=== PATIENT | male | born 1950 | race Caucasian/White ===

== ENCOUNTER 2019-08-06 22:22 | Observation (INO) ==
[2019-08-06 23:15] LABS: BASO# 0.03 X1000 (0.0-0.2); BASO% 0.3 % (0.0-0.8); EOS# 0.32 X1000 (0.0-0.7); EOS% 3.4 % (0.0-10.0); HEMATOCRIT 48.7 % (42.0-52.0); HEMOGLOBIN 16.4 g/dL (14.0-18.0); IMM GRAN# 0.02 X1000 (0.0-0.04); IMM GRAN% 0.2 % (0.0-0.5); LYMPH% 23.4 % (20.5-51.1); MCH 29.9 PG (27-31); MCHC 33.7 g/dL (33-37); MCV 88.7 FL (81-99); MONO# 0.79 X1000 (0.11-0.59); MONO% 8.4 % (1.7-9.3); MPV 10.7 FL (7.4-10.4); NEUT# 6.04 X1000 (1.4-6.5); NEUT% 64.3 % (42.2-75.2); PLT 224 X1000 (130-400); RBC 5.49 XMIL (4.7-6.1); RDW 13.8 % (11.5-14.5)
--- NOTE | 2019-08-06 23:43 | PROVIDER DOCUMENTATION ---
HPI-Syncope/Dizziness - General Chief Complaint: Syncope Stated Complaint: PASSED OUT AT HOME Time Seen by Provider: 08/06/19 22:46 Source: patient, family - History of Present Illness-Syncope/Dizzy Nature of Presenting Problem: This is a 68yo male who presents with CC of syncopal episode. The patient rep orts that he was heading to the rest room and noted some nausea and then had a syncopal episode while sitting next to the toilet. The episode lasted about 10 seconds and the patients saw him and began some chest compressions, and he quickly woke up and was talking to her. The patient was only out for 10-20 seconds. Onset/Duration: reports: other (10pm) Timing: reports: improving Symptoms prior to episode: reports: other (nausea) Context: reports: lost consciousness Loss of Consciousness: brief (seconds) Location of injury. (If syncope resulted in an injury.): reports: none Current Symptoms: reports: none/feels normal Similar symptoms previously: reports: previous diagnosis (patient had the flu) Recently Seen Here or By Another Healthcare Provider: No - Dizziness Dizziness Related Current/Associated Symptoms: reports: none/feels normal Review of Systems - Adult - REVIEW OF SYSTEMS - ADULT Constitutional: denies: fever Eyes: reports: no symptoms reported Ears, Nose, Mouth & Throat: reports: no symptoms reported Cardiovascular: denies: chest pain Respiratory: denies: cough, shortness of breath Gastrointestinal: denies: abdominal pain Genitourinary: reports: no symptoms reported Musculoskeletal: reports: no symptoms reported. denies: muscle weakness Integumentary: reports: no symptoms reported Neurological: reports: syncope (now resolved) Psychiatric: reports: no symptoms reported Endocrine: reports: no symptoms reported Hematologic/Lymphatic: reports: no symptoms reported Allergic/Immunologic: reports: no symptoms reported Past History - Adult - PAST MEDICAL HISTORY-ADULT Review of Records: reports: Old Records Reviewed Cardiovascular: reports: CAD, HTN, other (HLD) - SOCIAL HISTORY Substance Use: alcohol, marijuana Alcohol Use Frequency: occasionally Physical Exam-General - CONSTITUTIONAL General Appearance: appears well, alert, no apparent distress - EYES Eyes: PERRL/EOMI, other. negative: scleral icterus - HEAD, EARS, NOSE, MOUTH & THROAT HENMT: moist mucous membranes - RESPIRATORY Respiratory: rales (Left-side) - CARDIOVASCULAR Cardiovascular: regular rate, rhythm, no edema - GASTROINTESTINAL (ABDOMEN) Abdominal Exam: non tender, soft - MUSCULOSKELETAL Extremity: normal range of motion, other (strength 5/5 in upper and lower extremities) - SKIN Integumentary: normal color - NEUROLOGIC Neurologic: air pumper II-XII nml as tested. negative: facial droop, focal weakness, motor weakness, sensory deficit - PSYCHIATRIC Psych/Mental Status: normal mood/affect Progress - PLAN OF CARE/RESULTS Progress/Plan/Lab Results: Vital Signs - 8 hr 08/06/19 22:27 08/06/19 22:49 08/06/19 23:01 Temperature 97.4 F L Pulse Rate 61 62 61 Pulse Rate [Sitting] Pulse Rate [Standing] Pulse Rate [Supine] Respiratory Rate 16 14 13 Blood Pressure 120/67 142/73 115/68 Blood Pressure [Sitting] Blood Pressure [Standing] Blood Pressure [Supine] O2 Sat by Pulse Oximetry 95 96 98 08/06/19 23:42 08/06/19 23:44 08/06/19 23:45 Temperature Pulse Rate 62 68 75 Pulse Rate [Sitting] Pulse Rate [Standing] Pulse Rate [Supine] Respiratory Rate 13 15 18 Blood Pressure 121/70 124/69 123/89 Blood Pressure [Sitting] Blood Pressure [Standing] Blood Pressure [Supine] O2 Sat by Pulse Oximetry 94 L 92 L 92 L 08/07/19 00:01 08/07/19 00:05 08/07/19 00:31 Temperature Pulse Rate 62 71 Pulse Rate [Sitting] 65 Pulse Rate [Standing] 75 Pulse Rate [Supine] 62 Respiratory Rate 16 12 Blood Pressure 121/70 110/68 Blood Pressure [Sitting] 124/69 Blood Pressure [Standing] 123/89 Blood Pressure [Supine] 121/70 O2 Sat by Pulse Oximetry 94 L 93 L Laboratory Results - last 24 hr 08/06/19 08/06/19 08/06/19 22:39 22:53 22:53 WBC 9.40 RBC 5.49 Hgb 16.4 Hct 48.7 MCV 88.7 MCH 29.9 MCHC 33.7 RDW Std Deviation 13.8 Plt Count 224 MPV 10.7 H Immature Gran % (Auto) 0.2 Neut % (Auto) 64.3 Lymph % (Auto) 23.4 Gregg % (Auto) 8.4 Eos % (Auto) 3.4 Baso % (Auto) 0.3 Immature Gran # (Auto) 0.02 Neut # (Auto) 6.04 Lymph # (Auto) 2.20 Gregg # (Auto) 0.79 H Eos # (Auto) 0.32 Baso # (Auto) 0.03 Sodium 140 Potassium 3.6 Chloride 102 Carbon Dioxide 29 Anion Gap 9 BUN 15 Creatinine 1.0 Estimated GFR/1.73 m2 > 60 BUN/Creatinine Ratio 15 Glucose 117 H POC Glucose 139 H Calculated Osmolality 281 Calcium 8.8 Total Bilirubin 0.62 AST 17 ALT 16 Alkaline Phosphatase 84 Troponin T Total Protein 6.5 Albumin 4.4 Globulin 2.1 Albumin/Globulin Ratio 2.1 Urine Source 08/06/19 08/07/19 22:53 01:26 WBC RBC Hgb Hct MCV MCH MCHC RDW Std Deviation Plt Count MPV Immature Gran % (Auto) Neut % (Auto) Lymph % (Auto) Gregg % (Auto) Eos % (Auto) Baso % (Auto) Immature Gran # (Auto) Neut # (Auto) Lymph # (Auto) Gregg # (Auto) Eos # (Auto) Baso # (Auto) Sodium Potassium Chloride Carbon Dioxide Anion Gap BUN Creatinine Estimated GFR/1.73 m2 BUN/Creatinine Ratio Glucose POC Glucose Calculated Osmolality Calcium Total Bilirubin AST ALT Alkaline Phosphatase Troponin T < 0.010 Total Protein Albumin Globulin Albumin/Globulin Ratio Urine Source CLEAN CATCH Orders Category Date Time Status Update & Confirm Home Medicati ROUTINE Care 08/07/19 01:36 Active CHEST-1 VIEW [RAD] Stat Exams 08/06/19 23:[address] HEAD W/O CONTRAST [CT] Stat Exams 08/06/19 23:20 Taken BNP [PRO B-NATRIURETIC PEPTIDE] Stat Lab 08/07/19 01:15 Received CBC WITH ELECTRONIC DIFF [HEME] Stat Lab 08/06/19 22:53 Completed COMPREHENSIVE METABOLIC PANEL [CHEM] Stat Lab 08/06/19 22:53 Completed Flu Swab [INFLUENZA SCREEN A/B] Stat Lab 08/07/19 01:05 Received TROPONIN T Stat Lab 08/06/19 22:53 Completed UA NIMS W/REFLEX CULT [URINALYSIS] Stat Lab 08/07/19 01:26 Results URINE DRUG SCREEN Stat Lab 08/07/19 01:26 Received 0.9% Sodium Chloride Inj [Ns] 1,000 ml Med 08/06/19 23:50 Discontinued IV 999 mls/hr EKG [EKG] Stat Ther 08/06/19 22:37 Ordered Transfer/Admit Order [TRANSFER] Routine Transfer 08/07/19 01:27 Ordered Result Diagrams: 08/06/19 22:53 08/06/19 22:53 - REASSESSMENT Reassessment #1 Status: other (Patient currently asymptomatic. Ortostatics negative. Awaiting imaging and lab results.) Reassessment #2 Status: other (Given patient age and bradycardia, and heart history will admit to inpatient. Discussed with hospitalist and he has accepted the patient.) Departure - Departure Date of Disposition Decision: 08/07/19 Time of Disposition Decision: 02:04 DIAGNOSIS: Bradycardia Syncope Qualifiers: Syncope type: unspecified Qualified Code(s): R55 - Syncope and collapse Disposition: ADMITTED INPATIENT 09 Certified Medical Emergency: Emergent Condition: Fair Referrals and Follow-Ups: Bonifacio Alvarez MD [Primary Care Provider] - - Critical Care Note This patient required my direct & personal management of CC.: No Attestation - Physician/ TIFFANIE Attestation Patient care was provided by Advanced Practice Provider:: No The physician spent face to face time with patient:: Yes Advanced Practice Provider documentation review:: Supervising physician onsite and consulted in the evaluation and care of this patient. The physician did have a face to face encounter with the patient.
[2019-08-06] MEDS ORDERED: NS 1,000 ML IV ONE (23:50)
[2019-08-07 00:50] LABS: AGAP 9; ALB/GLOB RATIO 2.1; ALBUMIN 4.4 g/dL (3.5-5.0); ALKALINE PHOSPHATASE 84 U/L (32-122); BUN 15 mg/dL (8-22); CALCIUM 8.8 mg/dL (8.8-10.2); CHLORIDE 102 mmol/L (98-107); COSMO 281; ESTIMATED GFR > 60; GLUCOSE 117 mg/dL (70-104); GOT 17 U/L (10-34); GPT 16 U/L (10-44); POTASSIUM 3.6 mmol/L (3.5-5.1); SODIUM 140 mmol/L (136-145); TCO2 29 mmol/L (25-35); TOTAL BILIRUBIN 0.62 mg/dL (0.20-1.00); TOTAL PROTEIN 6.5 g/dL (6.3-8.3)
[2019-08-07 01:29] LABS: URINE SOURCE CLEAN CATCH
[2019-08-07 02:11] LABS: UR AMPHETAMINES QUAL NONE DETECTED (NONE DETECT); UR BARBITUATES QUAL NONE DETECTED (NONE DETECT); UR BENZODIAZEPIN QUAL NONE DETECTED (NONE DETECT); UR CANNABINOIDS QUAL PRESUMPTIVE POSITIVE (NONE DETECT); UR COCAINE QUAL NONE DETECTED (NONE DETECT); UR METHADONE QUAL NONE DETECTED (NONE DETECT); UR OPIATES QUAL NONE DETECTED (NONE DETECT); UR OXYCODONE QUAL NONE DETECTED (NONE DETECT); UR PCP QUAL NONE DETECTED (NONE DETECT)
[2019-08-07 02:19] LABS: BILIRUBIN URINE NEGATIVE (NEGATIVE); BLOOD URINE NEGATIVE (NEGATIVE); COLOR YELLOW; GLUCOSE URINE NEGATIVE (NEGATIVE); KETONE URINE NEGATIVE (NEGATIVE); LEUKOCYTES URINE NEGATIVE (NEGATIVE); NITRITE URINE NEGATIVE (NEGATIVE); PH URINE 6.5; PROTEIN URINE 30 mg/dL (NEGATIVE); SP GRAVITY URINE 1.016; TURBIDITY URINE CLEAR (CLEAR); UR EPITHELIAL CELLS <10 /HPF (<10); URINE BACTERIA NEGATIVE /HPF; URINE RBC <10 /HPF (<10); URINE WBC <10 /HPF (<10); UROBILINOGEN URINE NORMAL (NORMAL)
--- NOTE | 2019-08-07 02:56 | HISTORY AND PHYSICAL ---
PRIMARY CARE PROVIDER: Yong Alvarez. CHIEF COMPLAINT: Syncope. HISTORY OF PRESENT ILLNESS: Mr. Hebert is a 68-year-old male who presents after having a syncopal episode. He stated that he was sitting in his living room watching football and this was after he had eaten dinner. He started feeling somewhat nauseous, went into the bathroom. Was sitting on the side of the toilet feeling as if he may vomit. At that point, he broke into a cold sweat and woke up in the bathtub with his over him. Apparently, he had loss of consciousness for around 10 seconds. After he got up, he had diarrhea and apparently after that he has felt fine. The stated that he looked pale. On coming in, his vital signs and laboratory data are normal. The patient is asymptomatic. Orthostatics were normal. On his EKG on arrival, he was bradycardic with a rate of 56. He is on Coreg. It is possible that he had a spell of symptomatic bradycardia or possibly vasovagal. At any rate, his CT of his head was normal as well. He will be placed on observation status for further evaluation and treatment. PAST MEDICAL HISTORY: Hypertension, hyperlipidemia, coronary artery disease with previous cardiac stenting, congestive heart failure with an ejection fraction around 40%. PREVIOUS SURGICAL HISTORY: Cardiac stenting. Denies other surgical history. 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 He works in an air conditioned environment. Has not worked since . He does not smoke. He quit around 2009. Does use marijuana a couple of times daily. He had used marijuana today prior to having the spell. Drinks 2 beers a week and does not use any other illicit drugs. FAMILY HISTORY: Positive for coronary artery disease in first-degree relatives. ALLERGIES: No known drug allergies. HOME MEDICATIONS: Coreg, dosage is unknown. Also takes he said a blood pressure pill which he is unsure of and a statin. Order was placed for Nursing to reconcile these home medications. They can be restarted tomorrow. REVIEW OF SYSTEMS: Fourteen-point review of systems conducted with the patient. Pertinent positives listed above in the HPI. He has no complaints at this time. All other systems are negative. PHYSICAL EXAMINATION: VITAL SIGNS: Temperature 97.4, pulse 61, respirations 13, blood pressure 115/68, oxygen saturation 98% on room air. GENERAL: Pleasant 68-year-old male lying in the ER stretcher. Answers all questions appropriately. Alert and oriented times 3. is at bedside, very attentive. HEENT: Head is atraumatic, normocephalic. Pupils equal, round, reactive to light. Extraocular eye movement is intact. Sclerae are anicteric. Conjunctiva is pink. Oral mucosa is moist. NECK: Supple. No JVD. No thyromegaly. Trachea is midline. No cervical lymphadenopathy. CARDIAC: S1, S2 appreciated. No murmurs, gallops, rubs. LUNGS: Crepitations noted scattered throughout bilateral air jeff. No rhonchi. No wheezes. Symmetric rise and fall with respirations. ABDOMEN: Soft, nondistended, nontender. Bowel sounds present all 4 quadrants, normoactive. No pulsatile mass or organomegaly. EXTREMITIES: No clubbing, cyanosis or edema. Two-plus pedal pulses bilaterally. GENITOURINARY: No bladder distention. Patient voids. Otherwise deferred. NEUROLOGICAL: Patient is alert and oriented times 3. Cranial nerves 2 through 12 grossly intact. SKIN: Warm, dry and intact. No acute lesions or rash. DIAGNOSTIC DATA: CT of the head: No acute intracranial process. Chest x-ray: No acute process, maybe mild pulmonary vascular congestion. LABORATORY DATA: CBC within normal limits. Chemistry panel in normal limits other than a glucose of 117. Troponin less than 0.010. ASSESSMENT AND PLAN: 1. Syncope of unknown etiology. It could be related to symptomatic bradycardia or vasovagal process. We will place the patient on telemetry. Continue to monitor heart rate. Patient also has a urine drug screen and a UA that are pending. Recheck EKG tomorrow morning. Defer further diagnostic workup to Dr. oYng Alvarez, his primary care provider. 2. Hypertension. He is normotensive at this time. Nursing to reconcile home medications. Those can be restarted when appropriate. 3. Hyperlipidemia. Restart statin when reconciled. 4. History of coronary artery disease. Aware. Further recommendations per patient clinical course. Dictated by INDIGO Roman for Brody Brito MD cc: INDIGO Roman MD Jagan Reddy, MD Independent exam and assessment performed which was very likely to due a vasovagal event. An echo should be considered in light of his underlying CAD. JUAN
[2019-08-07] MEDS ORDERED: TYLENOL PO PRN (03:50)
[2019-08-07] MEDS ORDERED: ZOFRAN IV PRN (03:50)
--- NOTE | 2019-08-07 04:32 | EKG Report ---
Test Performed on : 08/06/2019 10:40:10 PM Test Reason : syncope Blood Pressure : / mmHG Vent. Rate : 057 BPM Atrial Rate : 057 BPM P-R Int : 184 ms QRS Dur : 082 ms QT Int : 426 ms P-R-T Axes : 061 057 068 degrees QTc Int : 414 ms Sinus bradycardia. Septal infarct , age undetermined Abnormal ECG No previous ECGs available Unconfirmed Result
--- NOTE | 2019-08-07 09:08 | Diag Imaging Result Doc PS360 ---
EXAM: CHEST-1 VIEW INDICATION: syncope TECHNIQUE: One view COMPARISON: None. FINDINGS: There are a few calcified hilar lymph nodes indicating prior granulomatous disease. The lungs are grossly clear. There is no discrete pleural fluid collection or pneumothorax. The cardiomediastinal silhouette and central vasculature are grossly unremarkable. IMPRESSION: No evidence of acute pathology by plain radiograph. Electronically signed by Delbert Gurrola 08/07/2019 9:05 AM
--- NOTE | 2019-08-07 09:23 | Diag Imaging Result Doc PS360 ---
EXAM: CT HEAD W/O CONTRAST INDICATION: Syncope TECHNIQUE: This exam was performed using automated exposure control, adjustment of mA or kV according to patient size, and/or use of iterative reconstruction technique. COMPARISON: None. FINDINGS: There is no definite acute infarct given the limited sensitivity of CT versus MRI. There is no discrete intracranial mass, mass effect, or intracranial hemorrhage. There is complete opacification of the left maxillary sinus with surrounding hyperostosis indicating severe chronic sinusitis. The remaining visualized paranasal sinuses are clear. Surrounding soft tissues and bony structures are unremarkable, otherwise. IMPRESSION: 1.No evidence of acute intracranial pathology. 2.Severe left maxillary chronic sinusitis. Electronically signed by Delbert Gurrola 08/07/2019 9:21 AM
--- NOTE | 2019-08-07 10:52 | PROGRESS NOTE ---
DATE: 08/07/2019 SUBJECTIVE: The patient relates he was sitting on the side of the bathtub as he was feeling nauseated is if he were going to throw up. He had a syncopal episode, ended up in the bathtub, found by his . The patient had one other syncopal episode when he had the flu years ago. Says he had one episode of diarrhea after that and has felt normal since then. He has been placed on his current medications per Dr. Jett years ago and has been kept on those by Dr. 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 He has a follow-up appoint with him in a month. MEDS: Coreg 12.5 mg p.o. b.i.d., lisinopril 10 mg daily, vitamin B12, some Naprosyn occasionally, Zocor 80 mg nightly, aspirin 81 mg daily. OBJECTIVE: Afebrile, pulse 65 as low was 57 on the EKG when he came in. Blood, blood pressure 125/67, respiratory rate 18, O2 saturation room air 98%. CV bradycardia regular rhythm. No major murmur. Lungs clear. Extremities no edema. Abdomen nontender. No mass. No hepatosplenomegaly. Neuro: Cranial nerves are intact. No focal deficits. XRAY DATA: Shows essentially normal CBC. CMP unremarkable. ProBNP 291. Troponin less than 0.01 x 2. TSH is normal at 0.92. Urine is negative for blood, and otherwise negative. No signs of rhabdo. Urine drug screen positive for cannabinoids. CT scan of the head shows some chronic severe left maxillary sinusitis and on questioning the patient denies any symptoms of that. Chest x-ray is negative. ASSESSMENT: 1. Syncope, rule out secondary to hypotension or bradycardia, or vasovagal. 2. Hypertension. 3. Hyperlipidemia. 4. Coronary artery disease. 5. Left chronic sinusitis, maxillary per CT scan without symptoms. PLAN: 1. Will follow the patient during the day today and tonight resume the Coreg at half the dose he has been on home and half his lisinopril. 2. Orally hydrate the patient well. 3. Continue his aspirin and Zocor. 4. Monitor him and if he does well, possible discharge tomorrow. 5. He might need a carotid Doppler studies. 6. Consider treatment of the sinusitis with antibiotics. We will leave that to Dr. Alvarez. cc: MD Tomy Harden MD
[2019-08-07] MEDS: PRINIVIL PO SCH (13:34)
[2019-08-07] MEDS: ASPIRIN PO SCH (13:34)
[2019-08-07] MEDS: COREG PO SCH ×2 (13:34→21:59)
--- NOTE | 2019-08-07 18:46 | EKG Report ---
Test Performed on : 08/07/2019 05:43:11 AM Test Reason : chest pain Blood Pressure : / mmHG Vent. Rate : 068 BPM Atrial Rate : 068 BPM P-R Int : 194 ms QRS Dur : 086 ms QT Int : 416 ms P-R-T Axes : 066 066 076 degrees QTc Int : 442 ms Normal sinus rhythm. Possible Septal infarct (cited on or before 06-AUG-2019) Borderline ECG When compared with ECG of 06-AUG-2019 22:40, (Unconfirmed) No significant change was found Confirmed by Chichi JUNE, Eduardo Arriaza ([id number]) on 08/08/2019 7:00:55 AM
[2019-08-07] MEDS: ZOCOR PO SCH (21:58)
[2019-08-08] MEDS: PRINIVIL PO SCH (10:53)
[2019-08-08] MEDS: COREG PO SCH ×2 (10:53→20:47)
[2019-08-08] MEDS: ASPIRIN PO SCH (10:54)
[2019-08-08] MEDS: ZOCOR PO SCH (20:47)
--- NOTE | 2019-08-09 07:30 | PROGRESS NOTE ---
DATE: 08/07/2019 SUBJECTIVE: A 68-year-old white male admitted to the hospital with syncope. EKG was bradycardia. The patient was on Coreg, and it was not sure whether sick sinus syndrome. The patient is feeling better. No chest pain. REVIEW OF SYSTEMS: None reported. PAST MEDICAL HISTORY: Reviewed. PAST SURGICAL HISTORY: Reviewed. MEDICINES: Reviewed. ALLERGIES: Not known. OBJECTIVE: Vital Signs: Temperature is 98 degrees, pulse is 56. Vitals are stable. O2 sat is 97% on room air. HEENT: Within normal limits. Neck: Supple. No lymphadenopathy. Chest: Bilateral air entry. Heart: Sounds are regular. Abdomen: Soft, nontender. Neurologic: No obvious deficits noted. LABORATORY INVESTIGATIONS: CBC is normal. SMA 7 was normal. Cardiac enzymes are normal. ProBNP 292. TSH is normal. Urinalysis is clear. Urine tox screen is positive for marijuana. Flu test was negative. Telemetry strips, no cardiac arrhythmias noted. EKG, sinus bradycardia. CT of the head, no evidence of acute intracranial pathology, severe left maxillary chronic sinusitis. Chest x-ray was stable. ASSESSMENT AND PLAN: 1. Near syncope, sinus bradycardia, probably from medicine effect, rule out cardiac arrhythmias with outpatient workup. 2. Hyperlipidemia on Zocor. Currently on Coreg 6.25 q.12. 3. Chronic ischemic cardiomyopathy. Aspirin, lisinopril, simvastatin. 4. History of marijuana abuse. I explained the side effects. Continue to monitor in telemetry. If stable we will discharge as an outpatient. LEVEL OF DOCUMENTATION: 35 minutes. cc: Tomy Alvarez MD
[2019-08-09 08:18] VITALS: BP 138/73
[2019-08-09] MEDS: ASPIRIN PO SCH (09:01)
[2019-08-09] MEDS: COREG PO SCH (09:01)
[2019-08-09] MEDS: PRINIVIL PO SCH (09:01)
--- NOTE | 2019-08-10 23:20 | DISCHARGE SUMMARY ---
ADMISSION DATE: 08/07/2019 DISCHARGE DATE: 08/09/2019 DISCHARGE DIAGNOSES: 1. Syncope, etiology to be determined. 2. Sinus bradycardia. 3. Left maxillary sinusitis. SECONDARY DIAGNOSES: 1. Hypertension. 2. Hyperlipidemia. 3. Coronary artery disease with stent with ischemic cardiomyopathy. 4. History of marijuana abuse. BRIEF HISTORY: Please see the H and P that was done by hospitalist. In brief, he is a 68-year- old male with above problems. He is due for annual checkup in September 2019, was not seen since last year. Basically came in with near-syncope and dizziness. He has also history of substance abuse problem with marijuana. Heart rate was low. He was on Coreg 12.5 p.o. b.i.d., that was cut down the dose, half of p.o. b.i.d. He did not have any neurological symptoms or seizures. He was admitted for observation. During this hospital course, cardiac nuclear monitoring technician, no evidence of cardiac arrhythmias. The patient is back to the baseline. LABS: CBC: White cell count 9.4, hematocrit 48, platelets 224,000. Sodium 140, potassium 3.6, chloride 102, BUN 15, creatinine 1.0. Glucose 117. Troponin was 92. ProBNP 290. TSH is normal. Urinalysis is clear. Urine toxicology positive for marijuana. Flu test was negative. IMAGIN. Chest x-ray, no evidence of acute pathology. 2. CT head negative except left maxillary chronic sinusitis. The patient is anxious to go home. Will do outpatient workup, which includes: 1. Syncope workup. 2. A 30-day loop monitor. 3. Carotid Doppler's and stress test. DISCHARGE INSTRUCTIONS: 1. Continue aspirin 81 mg daily, simvastatin 80 daily, lisinopril 5 daily. 2. Decreased Coreg 6.25 p.o. b.i.d. 3. Also, explained the side effects of marijuana. 4. Follow up in my office next week for further workup. cc: MD MICHAEL AnnaD
== END 2019-08-09 10:12 | disposition home or self-care (01) ==
LOC: ED 22:22 → 3N 08-07 03:35 → SUATTDRO 08-07 03:35 → INTOOBSV 08-07 03:35
PROVIDERS: ADMIT Internal Medicine; ATTEND Internal Medicine